=== PATIENT | male | born 1975 | race Caucasian/White ===

== ENCOUNTER 2021-08-13 08:28 | Emergency (ER) | payer SELFPAY ==
[2021-08-13] MEDS ORDERED: traMADol 50 MG Tab PO ONE (08:39)
== END 2021-08-13 08:54 | disposition home or self-care (01) ==
LOC: DL.ED 08:28
DX: G89.4 Chronic pain syndrome (principal); Z76.0 Encounter for issue of repeat prescription; Z88.0 Allergy status to penicillin
CPT/HCPCS: 99281; A9270; 99283

== ENCOUNTER 2021-08-21 12:08 | Emergency (ER) | payer SELFPAY | END 2021-08-21 17:18 | disposition left against medical advice (07) | LOC: DL.ED 12:08 | DX: Z53.21 Procedure and treatment not carried out due to patient leaving prior to being seen by health care provider (principal) ==